=== PATIENT | male | born 1970 | race Caucasian/White ===

== ENCOUNTER 2025-03-28 12:29 | Emergency (ER) | payer OTHER ==
[~2025-03-28] VITALS: Ht 177.8 cm; Wt 120.2 kg
[2025-03-28 13:22] LABS: BASOPHILS ABSOLUTE AUTO 0.05 K/mm3 (0.00-0.23); BASOPHILS PERCENT AUTO 1 % (0-2); EOSINOPHILS ABSOLUTE AUTO 0.22 K/mm3 (0.00-0.68); EOSINOPHILS PERCENT AUTO 2 % (0-6); Hematocrit 40.3 % (37.0-53.0); Hemoglobin 13.8 g/dL (13.5-17.5); IMMATURE GRAN ABSOLUTE AUTO 0.05 K/mm3 (0.00-0.10); IMMATURE GRAN PERCENT AUTO 1 % (0-1); LYMPHOCYTES ABSOLUTE AUTO 0.92 K/mm3 (0.84-5.20); LYMPHOCYTES PERCENT AUTO 9 % (21-46); MONOCYTES ABSOLUTE AUTO 0.83 K/mm3 (0.16-1.47); MONOCYTES PERCENT AUTO 8 % (4-13); Mean Corpuscular HGB 29.5 pg (26.0-34.0); Mean Corpuscular HGB Conc 34.2 g/dL (31.5-36.5); Mean Corpuscular Volume 86 fL (80-100); Mean Platelet Volume 10.5 fL (9.1-12.4); NEUTROPHILS ABSOLUTE AUTO 7.76 K/mm3 (1.96-9.15); NEUTROPHILS PERCENT AUTO 79 % (41-73); Platelet Count 228 K/mm3 (150-400); RDW Coefficient Variation 12.1 % (11.7-14.2); RDW Standard Deviation 38.4 fL (35.1-46.3); Red Blood Cell Count 4.68 M/mm3 (4.30-5.90); White Blood Cell Count 9.83 K/mm3 (4.00-11.30)
[2025-03-28 13:45] LABS: Albumin, Blood 3.4 g/dL (3.4-5.0); Albumin/Globulin Ratio 0.8 (0.8-1.8); Bilirubin, Total 0.8 mg/dL (0.1-1.0); Bun/Creatinine Ratio 15.4 (12.0-20.0); Calcium, Blood 9.1 mg/dL (8.5-10.1); Creatinine, Blood 1.3 mg/dL (0.60-1.20); Globulin, Blood 4.2 g/dL (2.2-4.0); Potassium, Blood 3.7 mmol/L (3.5-5.5); Total Protein, Blood 7.6 g/dL (6.4-8.2)
[2025-03-28] MEDS ORDERED: PRED20 PO (16:44)
[2025-03-28] MEDS ORDERED: PredniSONE 20 MG Tab PO ONE (16:45)
== END 2025-03-28 16:52 | disposition home or self-care (01) ==
LOC: ER 12:29
PROVIDERS: Student in an Organized Health Care Education/Training Program
DX: M10.9 Gout, unspecified (principal); Z88.5 Allergy status to narcotic agent; Z88.8 Allergy status to other drugs, medicaments and biological substances
CPT/HCPCS: 73610; 80053; 85025; 93971; 99284-25; J7512

== ENCOUNTER 2025-04-13 07:33 | Inpatient (IN) | payer OTHER ==
[~2025-04-13] VITALS: Ht 177.8 cm; Wt 112.3 kg
[~2025-04-13 07:33] MED LIST: PRED20 PO
[2025-04-13 08:42] LABS: BASOPHILS ABSOLUTE AUTO 0.03 K/mm3 (0.00-0.23); BASOPHILS PERCENT AUTO 0 % (0-2); EOSINOPHILS ABSOLUTE AUTO 0.02 K/mm3 (0.00-0.68); EOSINOPHILS PERCENT AUTO 0 % (0-6); Hematocrit 35.9 % (37.0-53.0); Hemoglobin 12.7 g/dL (13.5-17.5); IMMATURE GRAN ABSOLUTE AUTO 0.12 K/mm3 (0.00-0.10); IMMATURE GRAN PERCENT AUTO 1 % (0-1); LYMPHOCYTES ABSOLUTE AUTO 0.78 K/mm3 (0.84-5.20); LYMPHOCYTES PERCENT AUTO 4 % (21-46); MONOCYTES ABSOLUTE AUTO 2.13 K/mm3 (0.16-1.47); MONOCYTES PERCENT AUTO 11 % (4-13); Mean Corpuscular HGB Conc 35.4 g/dL (31.5-36.5); Mean Corpuscular Volume 85 fL (80-100); NEUTROPHILS ABSOLUTE AUTO 15.87 K/mm3 (1.96-9.15); NEUTROPHILS PERCENT AUTO 84 % (41-73); NRBC ABSOLUTE 0.00 K/mm3 (0.00-0.02); NRBC Auto 0.0 /100 WBC (0.0-0.2); Platelet Count 169 K/mm3 (150-400); RDW Coefficient Variation 12.6 % (11.7-14.2); RDW Standard Deviation 38.6 fL (35.1-46.3)
[2025-04-13 09:18] LABS: Alanine Aminotransfer (ALT/SGP 25.0 U/L (12-78); Albumin, Blood 3.1 g/dL (3.4-5.0); Albumin/Globulin Ratio 0.9 (0.8-1.8); Anion Gap 17.0 mmol/L (3-11); Aspartate Aminotrans (AST/SGOT 10.0 U/L (12-37); Bilirubin, Total 0.9 mg/dL (0.1-1.0); Blood Urea Nitrogen 73.0 mg/dL (8-24); CO2, Blood 23.0 mmol/L (21-32); Calcium, Blood 9.0 mg/dL (8.5-10.1); Chloride, Blood 95.0 mmol/L (98-108); Creatinine, Blood 10.7 mg/dL (0.60-1.20); Globulin, Blood 3.4 g/dL (2.2-4.0); Glucose, Blood 103.0 mg/dL (70-99); Potassium, Blood 4.4 mmol/L (3.5-5.5); Sodium, Blood 131.0 mmol/L (136-145); Total Protein, Blood 6.5 g/dL (6.4-8.2)
[2025-04-13] MEDS ORDERED: HYDROCODONE-AC1 EAC7 PO (10:12)
[2025-04-13] MEDS ORDERED: LORA10ER PO (10:13)
[2025-04-13] MEDS ORDERED: NS 1,000 ML IV SCH ×2 (10:25→14:50)
[2025-04-13] MEDS ORDERED: Ondansetron HCl 2 MG / ML 2ML Vial IV PRN (10:25)
[2025-04-13 11:56] LABS: Prostate Specific Antigen 0.444 ng/mL (0.000-4.000)
[2025-04-13] MEDS ORDERED: Darbepoetin (Pharmacy Consult) SC SCH (12:00)
[2025-04-13 14:30] LABS: Albumin, Blood 2.8 g/dL (3.4-5.0); Anion Gap 13 mmol/L (3-11); Blood Urea Nitrogen 74 mg/dL (8-24); CO2, Blood 23 mmol/L (21-32); Calcium, Blood 8.5 mg/dL (8.5-10.1); Chloride, Blood 98 mmol/L (98-108); Creatinine, Blood 11.10 mg/dL (0.60-1.20); Glucose, Blood 85 mg/dL (70-99); Phosphorus, Blood 4.9 mg/dL (2.5-4.9); Potassium, Blood 4.2 mmol/L (3.5-5.5); Sodium, Blood 130 mmol/L (136-145)
[2025-04-13 15:13] VITALS: BP 155/87
[2025-04-13] MEDS ORDERED: Heparin Sodium,Porcine 5,000 UNIT/0.5 ML SDV SC SCH (16:00)
--- NOTE | 2025-04-13 20:07 | NUR ---
SHIFT SUMMARY PT IS A ER ADMIT TODAY. PT A&OX4. PT ADMITTED DUE TO ACUTE RENAL FAILURE. PT REPORTS CHRONIC PAIN. ADMIT ASSESS COMPLETE. MEDS NOT RECONSILED YET. PT "REQUEST[facility] GET [facility] TOLD NIGHT RN. PT INDEPENDENT IN ROOM/SBA WITH IV POLE. PT STATES NO CHEST PAIN/SOB. PT REPORTS SOME NAUSEA. MANAGED PER EMAR. PT ORIENTED TO UNIT/CALL LIGHT/FALL PRECAUTIONS. 2RN SKIN CHECK COMPLETE. PLAN IS RECHECK LABS IN AM. DR. MALDONADO WILL COME TO ROUND AT 6AM. PRODUCE TEAM MEMBER REPORTED "WHEN THEY BLADDER SCANED HIM THEY NOTED LESS THAN 50ML SO THEY DID NOT STRAIGHT CATH HIM FOR URINE SAMPLE." PT REPORTS NO URINE OUTPUT X3 DAYS. CALLED TROY GREGG STATED "HAVE NIGHT RN DO ANOTHER BLADDER SCAN AFTER PT HAS HAD A FEW HOURS OF RECEIVING FLUID." PT GETTING NS AT 100ML/HR. NOTIFIED NIGHT RN. NEW CREATININE RESULT NOTIFIED TO DR. SIMMONS. PT IN BED, BED IN LOWEST POSITION, CALL LIGHT IN REACH.
[2025-04-13] MEDS ORDERED: HYDROcodone 10-APAP 325 TAB PO PRN (20:20)
[2025-04-13 20:21] VITALS: BP 153/90
[2025-04-13 23:22] VITALS: BP 141/87
[2025-04-14] VITALS (21 sets, daily range): BP systolic 115–194; BP diastolic 83–443
--- NOTE | 2025-04-14 02:36 | NUR ---
NS INFUSING AT 100ML /HR. PT HAS RECEIVED APPROX 600ML ON THIS SHIFT.PT BLADDER SCANNED. SCAN RESULTS : 24ML. DR. WEBER NOTIFED AND ADVISED THIS NURSE TO CONTIUE TO MONITOR PATIENT.
--- NOTE | 2025-04-14 03:01 | NUR ---
ANALYTICAL CHEMISTRY TEACHER SUMMARY: PT BLADDER SCANNED; NOTIFIED OF RESULTS: 24ML. SEE PREVOIUS NURSES NOTE. CONTINUE TO MONITOR. NEPHROLOGY FOLLOWING PT. NO ACUTE DISTRESS NOTED T/O SHIFT. NS INFUSING AT 100ML /HR. PT INDEPENDENT WITH CARES IN ROOM. BED IN LOWEST POSITION. CALL LIGHT IN REACH. CARES ONGOING ORDERED.
[2025-04-14 05:13] LABS: BASOPHILS ABSOLUTE AUTO 0.03 K/mm3 (0.00-0.23); BASOPHILS PERCENT AUTO 0 % (0-2); EOSINOPHILS ABSOLUTE AUTO 0.09 K/mm3 (0.00-0.68); EOSINOPHILS PERCENT AUTO 1 % (0-6); Hematocrit 33.8 % (37.0-53.0); Hemoglobin 11.9 g/dL (13.5-17.5); IMMATURE GRAN ABSOLUTE AUTO 0.12 K/mm3 (0.00-0.10); IMMATURE GRAN PERCENT AUTO 1 % (0-1); LYMPHOCYTES ABSOLUTE AUTO 0.95 K/mm3 (0.84-5.20); LYMPHOCYTES PERCENT AUTO 6 % (21-46); MONOCYTES ABSOLUTE AUTO 2.03 K/mm3 (0.16-1.47); MONOCYTES PERCENT AUTO 12 % (4-13); Mean Corpuscular HGB Conc 35.2 g/dL (31.5-36.5); Mean Corpuscular Volume 84 fL (80-100); NEUTROPHILS ABSOLUTE AUTO 13.88 K/mm3 (1.96-9.15); NEUTROPHILS PERCENT AUTO 81 % (41-73); NRBC ABSOLUTE 0.00 K/mm3 (0.00-0.02); NRBC Auto 0.0 /100 WBC (0.0-0.2); Platelet Count 142 K/mm3 (150-400); RDW Coefficient Variation 12.6 % (11.7-14.2); RDW Standard Deviation 38.0 fL (35.1-46.3)
[2025-04-14 06:15] LABS: Magnesium, Blood 2.2 mg/dL (1.6-2.4); Thyroid Stimulating Hormone 0.844 uIU/mL (0.360-4.800); Uric Acid, Blood 12.4 mg/dL (3.5-7.2)
[2025-04-14 06:57] LABS: Alanine Aminotransfer (ALT/SGP 23.0 U/L (12-78); Albumin, Blood 2.6 g/dL (3.4-5.0); Albumin/Globulin Ratio 0.7 (0.8-1.8); Anion Gap 13.0 mmol/L (3-11); Aspartate Aminotrans (AST/SGOT 12.0 U/L (12-37); Bilirubin, Total 0.6 mg/dL (0.1-1.0); Blood Urea Nitrogen 82.0 mg/dL (8-24); CO2, Blood 23.0 mmol/L (21-32); Calcium, Blood 7.7 mg/dL (8.5-10.1); Chloride, Blood 98.0 mmol/L (98-108); Globulin, Blood 3.7 g/dL (2.2-4.0); Glucose, Blood 74.0 mg/dL (70-99); Phosphorus, Blood 4.6 mg/dL (2.5-4.9); Potassium, Blood 4.8 mmol/L (3.5-5.5); Sodium, Blood 129.0 mmol/L (136-145); Total Protein, Blood 6.3 g/dL (6.4-8.2)
[2025-04-14 07:00] LABS: Creatinine, Blood 13.5 mg/dL (0.60-1.20)
--- NOTE | 2025-04-14 09:28 | NUR ---
NPO. ABD CT DONE, STONE BLOCKAGE, DR VARGAS TO DO PROCEDURE AROUND5 PM. PATIENT ANXIOUS AND AGGITATED ABOUT PLAN OF CARE THIS AM, DR MALDONADO, DR VARGAS, DR SIMMONS AND LAB MANAGER SPOKE WITH PATIENT, PATIENT REPORTS UNDERSTANDING THE PATHWAY OF CARE MORE NOW, VERY OPPISIIONAL AND SUSPECIOUS OF ALL INTERVENTION AND CARE. IN SHOWER NOW
[2025-04-14] MEDS ORDERED: NS 1,000 ML IV SCH (09:35)
[2025-04-14] MEDS ORDERED: CeFAZolin Sodium 1,000 MG in NS 50 ML IV SCH (15:25)
--- NOTE | 2025-04-14 15:37 | NUR ---
PATIENT TO OR NOW
[2025-04-14] MEDS ORDERED: FentaNYL Citrate 50 MCG/ML 2 ML Injection IV PRN ×5 (16:15→17:45)
[2025-04-14] MEDS ORDERED: Ondansetron HCl 2 MG / ML 2ML Vial IV PRN ×2 (16:15→17:50)
[2025-04-14] MEDS ORDERED: Metoclopramide HCl 5MG / ML 2ML Vial IV PRN ×2 (16:15→17:45)
[2025-04-14] MEDS ORDERED: Albuterol 2.5 MG/3 ML VIAL INH PRN ×2 (16:15→17:45)
[2025-04-14] MEDS ORDERED: HYDROmorphone HCl/Pf 1MG SYR IV PRN ×2 (16:15)
[2025-04-14] MEDS ORDERED: Lidocaine 2% Jelly Uro-Jet ONE (16:40)
[2025-04-14] MEDS ORDERED: Dexamethasone Sod Phos 10 MG/ML 1ML VIAL ONE (17:08)
[2025-04-14] MEDS ORDERED: FentaNYL Citrate 50 MCG/ML 2 ML Injection ONE (17:08)
[2025-04-14] MEDS ORDERED: Ondansetron HCl 2 MG / ML 2ML Vial ONE (17:08)
--- NOTE | 2025-04-14 17:13 | NUR ---
PATIENT IN RPOCEDURE FO A NEPHRO STENT PACEMENT
[2025-04-14] MEDS ORDERED: Sugammadex Sodium 200 MG/2ML SDV (100 MG/ML) ONE (17:24)
[2025-04-14] MEDS ORDERED: Labetalol HCL 5 MG/ML 4ML Injection (Single Dose) IV PRN (17:45)
[2025-04-14] MEDS ORDERED: Labetalol HCL 5 MG/ML 4ML Injection (Single Dose) ONE (18:11)
[2025-04-14] MEDS ORDERED: Albuterol 2.5 MG/3 ML VIAL ONE (18:12)
[2025-04-15 00:25] VITALS: BP 127/81
[2025-04-15 04:56] LABS: Hematocrit 38.3 % (37.0-53.0); Hemoglobin 13.2 g/dL (13.5-17.5); Mean Corpuscular HGB Conc 34.5 g/dL (31.5-36.5); Mean Corpuscular Volume 86 fL (80-100); NRBC ABSOLUTE 0.00 K/mm3 (0.00-0.02); NRBC Auto 0.0 /100 WBC (0.0-0.2); Platelet Count 200 K/mm3 (150-400); RDW Coefficient Variation 12.7 % (11.7-14.2); RDW Standard Deviation 39.7 fL (35.1-46.3)
[2025-04-15 04:57] VITALS: BP 144/112
[2025-04-15 06:47] LABS: Magnesium, Blood 2.7 mg/dL (1.6-2.4)
[2025-04-15 07:06] LABS: Albumin, Blood 2.9 g/dL (3.4-5.0); Anion Gap 12 mmol/L (3-11); Blood Urea Nitrogen 80 mg/dL (8-24); CO2, Blood 23 mmol/L (21-32); Calcium, Blood 9.4 mg/dL (8.5-10.1); Chloride, Blood 107 mmol/L (98-108); Creatinine, Blood 7.36 mg/dL (0.60-1.20); Glucose, Blood 159 mg/dL (70-99); Phosphorus, Blood 6.5 mg/dL (2.5-4.9); Potassium, Blood 4.2 mmol/L (3.5-5.5); Sodium, Blood 138 mmol/L (136-145)
[2025-04-15 07:53] VITALS: BP 138/95
[2025-04-15 16:21] VITALS: BP 149/97
[2025-04-15 18:23] LABS: Source, Urine Straight Cath
[2025-04-15 18:32] LABS: Bilirubin, Urine Neg (Neg); Color, Urine Yellow (P-Yellow); Glucose Qualitative, Urine Neg (Neg); Ketones, Urine Neg (Neg); Leukocyte Esterase, Urine 1+ (Neg); Protein, Urine 2+ (Neg); Specific Gravity, Urine 1.010 (1.003-1.022); Urobilinogen, Urine NORM (Normal)
[2025-04-15 18:40] LABS: Red Blood Cells, Urine 25-50 /hpf (0-2)
--- NOTE | 2025-04-15 19:26 | NUR ---
SHIFT SUMMARY PT CONT LEVEL OF CARE. PT A&OX4 AND IND IN ROOM. PT S/P STENT PLACEMENT D/T KINDEY STONES. PT NOTED TO HAVE ADAQUATE AMOUT OF OUTPUT THIS SHIFT. URINE SAMPLE AND KIDNEY STONES SENT TO LAB AWAITING RESULTS. KINDEY FUNCTIONS NOTED TO BE IMPOROVING. DR MALDONADO STATED POSSIBLE DC TOMORROW.
[2025-04-15 20:12] LABS: EOS, Urine 0.0 % (0.0-1.0); Eosinophils-Raw #,Urine 0
[2025-04-15 20:41] VITALS: BP 153/107
[2025-04-15 23:14] VITALS: BP 147/106
[2025-04-15] MEDS ORDERED: Ondansetron HCl 2 MG / ML 2ML Vial IV PRN (23:15)
[2025-04-15] MEDS ORDERED: Metoclopramide HCl 5MG / ML 2ML Vial IV PRN (23:35)
--- NOTE | 2025-04-16 00:31 | NUR ---
NEW VERY DARK URINE Pt had been voiding normal colored urine until 04/15 when he voided very dark urine. It looked like bloody urine or myoglobin. I called the station master hospitalist who ordered a basic metabolic panel. Held 0000 heparin because pt had a urinary stent placed in the last 36 hours and that may be actively bleeding.
[2025-04-16 00:38] LABS: Hematocrit 36.5 % (37.0-53.0); Hemoglobin 12.4 g/dL (13.5-17.5)
[2025-04-16 01:00] LABS: Magnesium, Blood 2.5 mg/dL (1.6-2.4)
[2025-04-16 01:17] LABS: Albumin, Blood 2.9 g/dL (3.4-5.0); Anion Gap 10 mmol/L (3-11); Blood Urea Nitrogen 61 mg/dL (8-24); CO2, Blood 26 mmol/L (21-32); Calcium, Blood 9.1 mg/dL (8.5-10.1); Chloride, Blood 107 mmol/L (98-108); Creatinine, Blood 3.66 mg/dL (0.60-1.20); Glucose, Blood 104 mg/dL (70-99); Phosphorus, Blood 3.5 mg/dL (2.5-4.9); Potassium, Blood 4.9 mmol/L (3.5-5.5); Sodium, Blood 138 mmol/L (136-145)
[2025-04-16 01:32] VITALS: BP 148/92
[2025-04-16 05:05] VITALS: BP 134/96
--- NOTE | 2025-04-16 06:36 | NUR ---
Shift Summary Pt having bloody urine this shift, see previous nursing note. Dr. Cruz came to see pt this AM, per labs kidney function is improving. Dr. Cruz requested the surgion who placed a stent in PT's kidney be notified of blood in urine. I will pass this request on to day shift. Pt c/o of pain all over, especially flank and back, medicated per emar. Pt also had nausea last night and threw up his anti emetic, the extraction operator doc switched his anti emetic to IV Regalin. Pt rcving NS @ 100 as ordered.
[2025-04-16 08:05] VITALS: BP 135/98
[2025-04-16 12:10] LABS: Source, Urine Clean Catch
[2025-04-16 12:18] LABS: Bilirubin, Urine Neg (Neg); Color, Urine Brown (P-Yellow); Glucose Qualitative, Urine Neg (Neg); Ketones, Urine Neg (Neg); Leukocyte Esterase, Urine 1+ (Neg); Protein, Urine 3+ (Neg); Specific Gravity, Urine 1.015 (1.003-1.022); Urobilinogen, Urine NORM (Normal)
[2025-04-16 12:26] LABS: Red Blood Cells, Urine TNTC /hpf (0-2); White Blood Cells, Urine 0-2 /hpf (0-5)
[2025-04-16] MEDS ORDERED: ASMANEX220 M14 INH (15:16)
[2025-04-16] MEDS ORDERED: Cialis20 MG PO (15:17)
[2025-04-16] MEDS ORDERED: HYDHCL25 PO (15:17)
[2025-04-16] MEDS ORDERED: Vitamin B-12100 MCG PO (15:17)
[2025-04-16] MEDS ORDERED: ALBU90OI INH (15:18)
[2025-04-16] MEDS ORDERED: Flonase 0.05% N16 GM (15:18)
[2025-04-16] MEDS ORDERED: ALBU2.5V5 INH (15:18)
[2025-04-16] MEDS ORDERED: VITAMIN D5000 UNIT PO (15:18)
[2025-04-16 16:15] VITALS: BP 152/105
--- NOTE | 2025-04-16 18:31 | NUR ---
SHIFT SUMMARY PT NOTED TO HAVE HEMATURIA REPORTED FROM SHIFT PRIOR THAT CONT INTO THIS SHIFT ALONG WITH N/V. UROLOGY WAS NOTIFIED AND WANTED TO DO A UA WITH C&S IF INDICATED, KUB, AND POST VOID BLADDER SCAN. UA NEEDS C&S, KUB SHOWED NO MOVEMET IN STENT, AND PT STARTED ON FLOMAX DAILY. HEMATURIA NOTED TO CLEAR UP THROUGOUT SHIFT. PT HAS BEEN MEDICATED FOR PAIN THIS SHIFT PER EMAR SEE MAR FOR DETAILS. PT RECEIVED REGLAN X1 THIS SHIFT FOR NAUSEA WITH EFFECTIVENESS. TELE DC THIS SHIFT. AND IV FLUIDS DC PT IS TOLERATING PO INTAKE. PLACE IS TO GO HOME IN 1-2 ONCE MEDICALLY STABE.
[2025-04-16 20:02] VITALS: BP 132/104
[2025-04-17 05:09] LABS: Hematocrit 34.9 % (37.0-53.0); Hemoglobin 11.6 g/dL (13.5-17.5)
[2025-04-17 05:32] LABS: Albumin, Blood 2.5 g/dL (3.4-5.0); Anion Gap 8 mmol/L (3-11); Blood Urea Nitrogen 39 mg/dL (8-24); CO2, Blood 28 mmol/L (21-32); Calcium, Blood 8.8 mg/dL (8.5-10.1); Chloride, Blood 106 mmol/L (98-108); Creatinine, Blood 1.79 mg/dL (0.60-1.20); Glucose, Blood 100 mg/dL (70-99); Magnesium, Blood 2.1 mg/dL (1.6-2.4); Phosphorus, Blood 3.9 mg/dL (2.5-4.9); Potassium, Blood 4.4 mmol/L (3.5-5.5); Sodium, Blood 138 mmol/L (136-145)
[2025-04-17 05:53] VITALS: BP 143/89
--- NOTE | 2025-04-17 06:01 | NUR ---
Shift Summary Hematuria continues to clear up, urine now only has a slight orange tint. Urination has been very painful for pt t/o the night. Kidney function improving per creatinine labs. No c/o of nausea. Pt has continuing flank and back pain, medicated per EMAR.
[2025-04-17 08:40] VITALS: BP 146/102
[2025-04-17] MEDS ORDERED: TAMS.4ER PO (12:08)
[2025-04-17] MEDS ORDERED: Amlodipine Bes2.5 MG PO (12:08)
[2025-04-17] MEDS ORDERED: DOCU100 PO (12:09)
--- NOTE | 2025-04-17 13:41 | NUR ---
DISCHARGE PT DISCHARGED HOME. PATIENT ACCESS WHEELED PT OUT TO PARKING LOT. ALL BELONGINGS SENT WITH PT. EDUCATION PROVIDED, ALL QUESTIONS ANSWERED.
== END 2025-04-17 14:13 | disposition home or self-care (01) | DRG 660 ==
LOC: ER 07:33 → MEDS 10:20
PROVIDERS: Internal Medicine Nephrology; Student in an Organized Health Care Education/Training Program; Urology; ADMIT Internal Medicine
PROC: BT1F1ZZ Fluoroscopy of Left Kidney, Ureter and Bladder using Low Osmolar Contrast (ICD-10-PCS; 2025-04-14)
PROC: 3E03329 Introduction of Other Anti-infective into Peripheral Vein, Percutaneous Approach (ICD-10-PCS; 2025-04-14)
PROC: 0T778DZ Dilation of Left Ureter with Intraluminal Device, Via Natural or Artificial Opening Endoscopic (ICD-10-PCS; principal; 2025-04-14 16:00)
DX: N17.9 Acute kidney failure, unspecified (principal); E87.1 Hypo-osmolality and hyponatremia; Q60.0 Renal agenesis, unilateral; N13.2 Hydronephrosis with renal and ureteral calculous obstruction; M10.9 Gout, unspecified; I12.9 Hypertensive chronic kidney disease with stage 1 through stage 4 chronic kidney disease, or unspecified chronic kidney disease; N18.1 Chronic kidney disease, stage 1; D72.829 Elevated white blood cell count, unspecified; D63.1 Anemia in chronic kidney disease; E88.09 Other disorders of plasma-protein metabolism, not elsewhere classified; R31.0 Gross hematuria; E86.0 Dehydration; Z88.5 Allergy status to narcotic agent; Z88.8 Allergy status to other drugs, medicaments and biological substances; Z79.891 Long term (current) use of opiate analgesic; Z79.899 Other long term (current) drug therapy
CPT/HCPCS: 36415; 74018; 74150; 76770; 80053; 80069; 81001; 82533; 82550; 82947; 83735; 84100; 84145; 84443; 84550; 85014; 85018; 85025; 85027; 87040; 87086; 87205; 93306; 94760; 99284; A9270; G0103; J0690; J1100; J1644; J2405; J2704; J2765; J3010; J7030

== ENCOUNTER 2025-06-15 08:50 | Day surgery (SDC) | payer OTHER ==
[~2025-06-15] VITALS: Ht 177.8 cm; Wt 110.2 kg
[~2025-06-15 08:50] MED LIST changes: +ALBU2.5V5 INH; +ALBU90OI INH; +ASMANEX220 M14 INH; +Amlodipine Bes2.5 MG PO; +Cialis20 MG PO; +DOCU100 PO; +Flonase 0.05% N16 GM; +HYDHCL25 PO; +HYDROCODONE-AC1 EAC7 PO; +LORA10ER PO; +Lidocaine 2% Jelly Uro-Jet ONE; +TAMS.4ER PO; +VITAMIN D5000 UNIT PO; +Vitamin B-12100 MCG PO
[2025-06-15] MEDS ORDERED: HYDHCL25 (09:22)
[2025-06-15] MEDS ORDERED: NARCAN4 M1 (09:26)
[2025-06-15] MEDS ORDERED: Midazolam HCl 1MG / ML 2ML Vial ONE (09:28)
[2025-06-15] MEDS ORDERED: Rocuronium Bromide 10 MG/ML 5ML Injection IV ONE ×2 (09:28→10:05)
[2025-06-15] MEDS ORDERED: FentaNYL Citrate 50 MCG/ML 2 ML Injection ONE ×2 (09:28→12:03)
[2025-06-15] MEDS ORDERED: Sugammadex Sodium 200 MG/2ML SDV (100 MG/ML) ONE (09:29)
[2025-06-15] MEDS ORDERED: CeFAZolin Sodium 2,000 MG VIAL ONE (10:00)
[2025-06-15] MEDS ORDERED: Dexamethasone Sod Phos 10 MG/ML 1ML VIAL ONE (10:29)
[2025-06-15] MEDS ORDERED: Ondansetron HCl 2 MG / ML 2ML Vial ONE (10:29)
--- NOTE | 2025-06-15 11:08 | NUR ---
06/15/25 1108 Thais Michel [id number] MIXED 1:1 WITH NORMAL SALINE
--- NOTE | 2025-06-15 12:32 | NUR ---
06/15/25 1232 Carlos Owens PT VOIDED 20ML RED, CLEAR URINE PRIOR TO TRANSFER TO SDU. PT REPORTED 7/10 PAIN WITH URINATION.
[2025-06-15] MEDS ORDERED: NS 500 ML IV ONE (12:45)
[2025-06-15] MEDS ORDERED: HYDROcodone 5-APAP 325 TAB ONE (12:56)
[2025-06-19 04:54] LABS: CALCULI MASS 37 mg
== END 2025-06-15 13:29 | disposition home or self-care (01) ==
LOC: ORSCSDS 08:50
PROVIDERS: Urology
DX: N13.2 Hydronephrosis with renal and ureteral calculous obstruction (principal); Z90.5 Acquired absence of kidney; N40.1 Benign prostatic hyperplasia with lower urinary tract symptoms; R33.8 Other retention of urine; N17.9 Acute kidney failure, unspecified; I12.9 Hypertensive chronic kidney disease with stage 1 through stage 4 chronic kidney disease, or unspecified chronic kidney disease; N18.9 Chronic kidney disease, unspecified; J45.909 Unspecified asthma, uncomplicated; G47.33 Obstructive sleep apnea (adult) (pediatric); E66.9 Obesity, unspecified; Z68.34 Body mass index [BMI] 34.0-34.9, adult; Z79.899 Other long term (current) drug therapy
CPT/HCPCS: 82365; A9270; C1769; C2617; J0690; J1100; J2250; J2405; J2704; J3010; J7120